=== PATIENT | female | born 1995 | race Caucasian/White ===

== ENCOUNTER 2020-04-12 02:46 | Emergency (ER) | payer OTHER ==
--- NOTE | 2020-04-12 02:53 | PDOC ---
History of Present Illness - General Stated Complaint: ABD/BACK PAIN Time Seen by Provider: 04/12/20 02:52 Past History - Medical History Allergies/Adverse Reactions: Allergies Allergy/AdvReac Type Severity Reaction Status Date / Time zavala Allergy Verified 04/12/20 04:00 nitrofurantoin Allergy Verified 04/12/20 03:53 [From Macrobid] prednisone Allergy Verified 04/12/20 03:53 Home Medications: Ambulatory Orders Sulfamethoxazole/Trimethoprim [Bactrim Ds -] 1 tab PO BID #14 tablet 04/12/20 ED Treatment Course - LABORATORY CBC & Chemistry Diagram: 04/12/20 02:50 04/12/20 02:50 Medical Decision Making - Medical Decision Making 04/12/20 02:58 HPI: 24yo F hx kidney stones (1yr ago, passed on own, unknown side) BIBA for 2 hours bilateral cramping type lower abdominal pain radiating to bilateral flanks intermittent severe exactly same as prior kidney stones. LMP 1mo ago, regular, on control, not sexually active since last period. Denies vaginal bleeding, vaginal discharge, vaginal irritation, urinary urgency or frequency. Denies fever, chills, fatigue, headache, dizziness, numbness/tingling, weakness, vision changes, shortness of breath, cough, chest pain, palpitations, blood in stool, diarrhea, constipation, nausea, vomiting, dysuria, hematuria. ROS: Constitutional: Negative for chills, fever, fatigue, diaphoresis. HENT: Negative for sore throat, rhinorrhea, congestion. Eyes: Negative for visual disturbance. Respiratory: Negative for shortness of breath, cough, and wheezing. Cardiovascular: Negative for chest pain, palpitations, and leg swelling. Gastrointestinal: Positive for abdominal pain. Negative for blood in stool, constipation, diarrhea, nausea, and vomiting. Genitourinary: Positive for flank pain. Negative for dysuria, and hematuria. Musculoskeletal: Negative for myalgias, back pain, and neck pain. Skin: Negative for rash. Neurological: Negative for light-headedness, dizziness, vertigo, syncope, weakness, numbness and headaches. Psychiatric/Behavioral: Negative for behavioral problems and confusion. PE: Gen: Alert, NAD, uncomfortable-appearing, in position, holding stomach HEENT: PERRL, EOMI, MMM, NCAT. No conjunctival pallor. Sclera are non-icteric. CV: Regular rate and rhythm. No murmurs, rubs, or gallops. PULM: No resp distress. CTAB, no wheezes, rales, or rhonchi. ABD: soft, NT/ND, no rebound tenderness or guarding, no CVA tenderness. PELVIC: External genitalia unremarkable. No blood or discharge seen with speculum exam. Cervix visualized and is unremarkable (closed in appearance witho ut any protruding material). Bimanual exam without cervical motion tenderness, adnexal tenderness, or any masses appreciated. BACK: No TTP of c/t/l-spine. No step-offs or deformities. MSK: No bony deformities. 2+ pulses in all extremities. NEURO: AAOx3. PERRL. No gross CN deficits. Strength and sensation grossly intact throughout. EXTREMITIES: No cyanosis. No clubbing. No edema. PSYCH: Normal mood and thought pattern. SKIN: Warm and dry. Normal capillary refill. No rashes. No jaundice. MDM: 24yo F hx kidney stones (1yr ago, passed on own, unknown side) BIBA for 2 hours bilateral cramping type lower abdominal pain radiating to bilateral flanks intermittent severe exactly same as prior kidney stones. Hemodynamically stable, afebrile, benign abdomen. Ddx: presentation most c/w kidney stone. Also consider UTI, infected stone, pelvic pathology (lower concern due to hx stone and lack of vaginal bleeding) such as torsion or cyst or cyst rupture, GI pathology such as appendicitis or cholelithiasis/cystitis or colitis or pancreatitis (lower concern due to lack of N/V/D/C/F/C), infection, metabolic derangement, anemia -CBC,CMP,Lipase,UA/UC/HCG -IVF -Pain management -Spiral CT -Dispo: pending workup and reassessment, likely d/c home 04/12/20 03:26 Labs reviewed. Notable for blood and WBCs in urine, neg HCG, CBC/CMP WNL. 04/12/20 03:44 CTAP reviewed: R kidney stones nonobstructing 1g Rocephin 04/12/20 04:56 Bactrim rx Pt safe for d/c Will discharge home with PCP f/u. Return precautions given. Pt understands all discharge instructions and all questions were answered. Discharge - Discharge Information Problems reviewed: Yes Clinical Impression/Diagnosis: Renal colic, Kidney stone Condition: Improved Disposition: HOME - Admission No - Additional Discharge Information Prescriptions: Sulfamethoxazole/Trimethoprim [Bactrim Ds -] 1 tab PO BID #14 tablet - Follow up/Referral Referrals: Kelley Calloway [Primary Care Provider] - - Patient Discharge Instructions Patient Printed Discharge Instructions: DI for Kidney Stones Additional Instructions: You have been seen for your kidney stone. It is 3mm and should pass on its own. Stay hydrated and take ibuprofen as directed for pain. You had bacteria in your urine so we sent antibiotics to your pharmacy. Take as prescribed. Follow up with your primary care doctor tomorrow as scheduled. Return to the Emergency Department immediately for any new or concerning symptoms including fever, vomiting, or passing out. - Post Discharge Activity
[2020-04-12] MEDS ORDERED: SODIUM CHLORIDE 0.9% 500 ML INFUS.BAG IV ONE (02:59)
[2020-04-12 03:02] VITALS: BMI 21.6
[2020-04-12] MEDS ORDERED: ACETAMINOPHEN 325 MG TABLET (FP) ONE (03:03)
[2020-04-12 03:05] LABS: BASO % 0.6 % (0-2.0); EOS % 3.7 % (0-4.5); HEMATOCRIT 38.9 % (32.4-45.2); HEMOGLOBIN 13.3 GM/dL (10.7-15.3); LYMPH % 37.2 % (8-40); MCH 31.2 pg (25.7-33.7); MCHC 34.1 g/dl (32.0-36.0); MEAN CELL VOLUME 91.5 fl (80-96); MEAN PLT VOLUME 7.7 fl (7.5-11.1); MONO % 7.1 % (3.8-10.2); NEUT % 51.4 % (42.8-82.8); PLATELET COUNT 296 K/MM3 (134-434); RBC 4.25 M/mm3 (3.60-5.2); RDW 12.1 % (11.6-15.6); WHITE BLOOD COUNT 9.4 K/mm3 (4.0-10.0)
[2020-04-12] MEDS ORDERED: ACETAMINOPHEN 1000 MG/100 ML VIAL (NON FORMULARY) IVPB ONE (03:07)
[2020-04-12] MEDS ORDERED: ACETAMINOPHEN INJECTION 100 ML IVPB ONE (03:07)
--- NOTE | 2020-04-12 03:08 | PDOC ---
Attending Attestation - Resident Resident Name: Iva Garza - ED Attending Attestation I have performed the following: I have examined & evaluated the patient, The case was reviewed & discussed with the resident, I agree w/resident's findings & plan - HPI HPI: 04/12/20 03:57 see resident hpi - Physicial Exam PE: 04/12/20 03:57 see resident exam - Medical Decision Making 04/12/20 03:57 24-year-old female with history of kidney stone now with sudden onset of bilateral flank pain radiating to the pelvis with associated nausea CT scan shows nephrolithiasis with no definite ureterolithiasis Appendix appears normal There is 3+ blood in the urine suggesting possibly passed stone Patient improved after Toradol and Tylenol We will plan for antibiotics and DC home with urology follow-up as needed Discharge - Discharge Information Problems reviewed: Yes Clinical Impression/Diagnosis: Renal colic - Follow up/Referral - Patient Discharge Instructions - Post Discharge Activity
[2020-04-12 03:09] LABS: HCG,QUALITATIVE URINE Negative
[2020-04-12] MEDS ORDERED: KETOROLAC TROMETHAMINE 15 MG/ML VIAL IVPUSH ONE (03:12)
[2020-04-12] MEDS ORDERED: KETOROLAC TROMETHAMINE 15 MG/ML VIAL ONE (03:13)
[2020-04-12] MEDS ORDERED: ACETAMINOPHEN 325 MG TABLET (FP) PO ONE (03:15)
[2020-04-12 03:22] LABS: EPI CELLS 20 /uL (0-25.1); HYALINE CASTS 1 /uL (0-3.1); PH,URINE 5.5 (5.0-8.0); URINE APPEARANCE CLEAR; URINE BACTERIA 446 /uL (0-1359); URINE BILIRUBIN NEGATIVE (NEGATIVE); URINE COLOR YELLOW; URINE GLUCOSE (UA) NEGATIVE (NEGATIVE); URINE KETONE NEGATIVE (NEGATIVE); URINE LEUK ESTERASE TRACE (NEGATIVE); URINE NITRITE NEGATIVE (NEGATIVE); URINE PROTEIN NEGATIVE (NEGATIVE); URINE UROBILINOGEN 0.2 mg/dL (0.2-1.0); URINE WBC 26 /uL (0-25.8)
[2020-04-12 03:25] LABS: ALBUMIN 3.6 g/dl (3.4-5.0); BILIRUBIN,TOTAL 0.2 mg/dL (0.2-1); BLOOD UREA NITROGEN 11.3 mg/dL (7-18); CALCIUM 9.7 mg/dL (8.5-10.1); CREATININE 0.9 mg/dL (0.55-1.3); POTASSIUM 3.6 mmol/L (3.5-5.1); TOT PROT 7.1 g/dl (6.4-8.2)
[2020-04-12] MEDS ORDERED: CEFTRIAXONE 1 GM in DEXTROSE 5%-WATER - 100 ML IVPB ONE (03:44)
[2020-04-12] MEDS ORDERED: CEFTRIAXONE 1 GM/50 ML BAG ONE (03:53)
[2020-04-12 04:45] LABS: URINE CRYSTALS MOD /hpf
[2020-04-12 05:22] VITALS: BP 96/62; PULSE 72; TEMP 98.1
== END 2020-04-12 05:22 | disposition home or self-care (01) ==
LOC: JER 02:46
PROC: 3E03329 Introduction of Other Anti-infective into Peripheral Vein, Percutaneous Approach (ICD-10-PCS; principal; 2020-04-12)
PROC: 3E033GC Introduction of Other Therapeutic Substance into Peripheral Vein, Percutaneous Approach (ICD-10-PCS; 2020-04-12)
DX: N23 Unspecified renal colic (principal); N20.0 Calculus of kidney
CPT/HCPCS: 36415; 74176-TC; 80053; 81003; 83690; 84703; 85025; 87086; 99284-25; J0131